=== PATIENT | male | born 1965 | race American Indian/Alaskan Native ===

== ENCOUNTER 2020-09-15 09:19 | Day surgery (SDC) | payer MEDICARE ==
[~2020-09-15 09:19] MED LIST: PHENYLEPHRINE 10 MG/1 ML INJ SDV ONE
[2020-09-15] MEDS ORDERED: SODIUM CHLORIDE 0.9% 1000 ML 1,000 ML IV SCH (10:30)
--- NOTE | 2020-09-15 10:31 | Anesthesia Consultation ---
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
--- NOTE | 2020-09-15 10:33 | Anesthesia Day of Surgery ---
Anesthesia Day of Surgery - Day of Surgery Patient Examined: Yes Patient H&P Reviewed: Yes Patient is NPO: Yes
[2020-09-15 10:53] LABS: Hemoglobin 13.4 gm/dl (11.8-15.2); Mean Corpuscular HGB Conc 34 % (32-34); Mean Corpuscular Volume 94 fl (84-94); Platelet Count 340 K/mm3 (140-440); Red Blood Count 4.24 M/mm3 (3.65-5.03); Red Cell Distribution Width 14.5 % (13.2-15.2)
[2020-09-15] MEDS ORDERED: MIDAZOLAM 5 MG/5 ML INJ MDV IV ONE (10:58)
[2020-09-15] MEDS ORDERED: HYDROmorphone 1 MG/1 ML INJ ONE ×2 (10:59→14:35)
[2020-09-15 11:02] LABS: INR 1.9 (0.87-1.13)
[2020-09-15 11:03] LABS: Partial Thromboplastin Time 33.5 Sec. (24.2-36.6)
[2020-09-15 11:07] LABS: BUN/Creatinine Ratio 10; Blood Urea Nitrogen 11 mg/dL (9-20); Calcium 9.9 mg/dL (8.4-10.2); Hemolysis Index 4
[2020-09-15] MEDS ORDERED: HEPARIN/NS 5000 UNIT/500ML 1,000 ML IR ONE (11:11)
[2020-09-15] MEDS ORDERED: SODIUM CHLORIDE 0.9% 1000 ML 1,000 ML ONE (11:11)
[2020-09-15] MEDS: ceFAZolin/Water 2 GM/20 ML 2 GM/20 ML SYRINGE IV ONE ×2 (11:29→11:30)
[2020-09-15] MEDS: LIDOCAINE (2%) 20 MG/1 ML VIAL 20 ML MDV INFILTRATI ONE ×2 (11:30→11:48)
[2020-09-15] MEDS: HEPARIN 10,000 UNITS/10 ML VIAL ONE ×2 (12:00→12:45)
[2020-09-15] MEDS ORDERED: SODIUM CHLORIDE 0.9% 100 ML ONE (12:13)
[2020-09-15] MEDS ORDERED: KETAMINE/STERILE WATER 50 MG/ML SYRINGE ONE (12:21)
[2020-09-15] MEDS ORDERED: HEPARIN/NS 5000 UNIT/500ML 500 ML IR ONE (12:25)
[2020-09-15] MEDS ORDERED: VERAPAMIL 5 MG/2 ML INJ ONE (12:52)
[2020-09-15] MEDS ORDERED: NITROGLYCERIN SYRINGE 3 ML ONE (12:54)
--- NOTE | 2020-09-15 14:02 | Short Stay Summary ---
Short Stay Documentation Date of service: 09/15/20 - History Principal diagnosis: Right PVD with short distance claudication H&P: obtained from office - Allergies and Medications Current Medications: Allergies aspirin Allergy (Verified 09/15/20 10:12) Swelling Home Medications Medication Instructions Recorded Confirmed Last Taken Type DULoxetine [Cymbalta] 30 mg PO DAILY 09/15/20 09/15/20 09/12/20 History 1 tab Oxycodone HCl [oxyCODONE] 20 mg PO Q6H PRN 09/15/20 09/15/20 09/12/20 History 1 tab Rivaroxaban [Xarelto] 20 mg PO DAILY 09/15/20 09/15/20 09/15/20 History 1 tab cilostazoL [Pletal] 50 mg PO BID 09/15/20 09/15/20 Unknown History cilostazoL [Pletal] 50 mg PO BID 09/15/20 09/15/20 Unknown History lisinopriL [Lisinopril] 20 mg PO BID 09/15/20 09/15/20 09/15/20 History 1 tab Active Medications Sodium Chloride (Nacl 0.9% 1000 Ml) 1,000 mls @ 0 mls/hr IV DIRECT JAIR - Brief post op/procedure progress note Date of procedure: 09/15/20 Pre-op diagnosis: Right PVD with claudication Post-op diagnosis: same Procedure: Right lower extremity angiogram from an antegrade and pedal approach Anesthesia: local Surgeon: TEZ CARLISLE Estimated blood loss: minimal Pathology: none Condition: stable - Disposition Condition at discharge: Good Disposition: [id number] TO HOME OR SELFCARE Short Stay Discharge Plan Activity: advance as tolerated Weight Bearing Status: Weight Bear as Tolerated Diet: regular Wound: keep clean and dry, per your surgeon's advice Follow up with: PRIMARY CARE, [Primary Care Provider] - 7 Days
--- NOTE | 2020-09-15 14:15 | Operative Report ---
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 Status post femoropopliteal bypass and fem-tib bypass both of which have gone down. Patient presents with short d istance claudication Date: 09/15/2020 Procedure: Following an explanation of the risks, benefits and alternatives; written informed consent was obtained. The patient was brought to the angiographic suite and placed in supine position on the examination table. Initial ultrasound evaluation of his left groin demonstrated a patent left common femoral artery. I the patient's left groin and right foot were prepped and draped in the usual sterile fashion. 1% lidocaine was used for anesthesia. Under ultrasound guidance, the left common femoral vein was cannulated with a 7 cm 21-gauge needle. A 0.018 guidewire was advanced centrally. The needle was removed and a microsheath placed. The 0.018 guidewire was exchanged for a 0.035 guidewire and the micro sheath exchanged for a 5 Moroccan vascular sheath. An Omni Flush catheter was then advanced through the sheath over the guidewire to the distal abdominal aorta. Angiography was performed for anatomic localization. The distal abdominal aorta, bilateral common iliac, bilateral external iliac arteries are widely patent. The bifurcation was crossed using the Omni Flush catheter and guidewire. The Omni Flush catheter was advanced and additional angiography obtained with the Omni Flush catheter in the right common femoral artery and right proximal superficial femoral artery. This demonstrated complete occlusion of the mid superficial femoral artery distally. The guidewire was advanced through the Omni Flush catheter to the proximal superficial femoral artery on the right and the 5 Moroccan sheath exchanged for a 7 Moroccan 65 cm sheath. A vertebral catheter was then advanced over the guidewire. Selective cannulation of the occluded end of the superficial femoral artery was then performed and the catheter and guidewire manipulated through the occluded SFA. The catheter and guidewire would not advance all the way to the popliteal artery. Angiography performed to the sheath demonstrates reconstitution of a 2 cm segment of popliteal artery with only collateral geniculate branches flowing distally from it. No distal popliteal artery, tibioperoneal trunk or proximal tibial arteries are identified. A decision was made to attempt retrograde access. Ultrasound evaluation of the patient's right foot demonstrated a patent although diminutive posterior tibial artery at the ankle. The posterior tibial artery was cannulated with a 3-1/2 cm 21-gauge needle. A 0.018 guidewire was advanced approximately 5 cm distally. The needle was removed and exchanged for the inner portion of a microsheath. Contrast was injected which demonstrated true luminal position in the distal posterior tibial artery. There is filling of the distal posterior tibial artery from a peroneal artery which is fed by collaterals. No inline flow from tibial arteries is identified onto the foot. Using a variety of catheter and guidewire, the proximal posterior tibial artery was cannulated. No luminal blood flow was identified at any point above the ankle. Attempts to manipulate the proximal catheter and guidewire more distally were unsuccessful secondary to occlusion of the distal SFA and P1 segment of the popliteal artery. Attempts to manipulate more proximally from the pedal approach catheter and guidewire were unsuccessful secondary to occlusion of the proximal posterior tibial artery and tibioperoneal trunk. At this point, the catheters, guidewires and sheaths were removed. Hemostasis was achieved in the left groin using an Angio-Seal arterial closure device. Hemostasis was achieved at the right ankle using manual compression and a sterile dressing was applied to both access sites. The patient tolerated the procedure well. There were no immediate postprocedure complications. Sedation was provided by anesthesia services secondary to patient's high pain tolerance. Continuous cardiopulmonary monitoring was utilized. Impression: Right lower extremity angiography from a antegrade and pedal approach demonstrating occlusion of the distal SFA, P1 segment of the popliteal artery, P3 segment of the popliteal artery extending into the tibioperoneal trunk and proximal aspect of all tibial arteries. There is reconstitution of the anterior tibial artery and posterior tibial artery at the ankle from a short segment of peroneal artery. All of the above named vessels are reconstituted from significant collaterals. Given the unreconstruct ability endovascularly of the patient's vasculature, the patient will need to continue on Pletal and continue exercise directed therapy. The patient has failed to attempted bypass surgeries in the past. At this point, would not consider any additional bypasses.
[2020-09-15] MEDS ORDERED: ROCURONIUM 50 MG/5 ML INJ IV ONE (14:35)
[2020-09-15] MEDS: HYDROmorphone 1 MG/1 ML INJ IV PRN ×2 (14:36→14:46)
--- NOTE | 2020-09-15 15:41 | Post Anesthesia Evaluation ---
- Post Anesthesia Evaluation Patient Participated: Yes Airway Patent: Yes Stable Respiratory Function: Yes Nausea/Vomiting: No Temp > 96.8F: Yes Pain Manageable: Yes Adequeate Hydration: Yes Anesthesia Complications: No
[2020-09-15 16:05] VITALS: BP 136/93
== END 2020-09-15 09:20 | disposition home or self-care (01) ==
LOC: CATHLABREC 09:19
PROVIDERS: ATTEND Radiology Diagnostic Radiology
DX: I70.213 Atherosclerosis of native arteries of extremities with intermittent claudication, bilateral legs (principal); I10 Essential (primary) hypertension; E66.9 Obesity, unspecified; Z79.899 Other long term (current) drug therapy; Z88.8 Allergy status to other drugs, medicaments and biological substances; Z98.890 Other specified postprocedural states; Z68.36 Body mass index [BMI] 36.0-36.9, adult
CPT/HCPCS: 36247; 36415; 75625; 75710; 76937; 80048; 85027; 85610; 85730; C1725; C1760; C1769; C1887; C1894; J0690; J1170; J1644; J2250; J2370; J2704; J3490; J7030; Q9967